=== PATIENT | male | born 1960 | race Caucasian/White ===

== ENCOUNTER 2018-01-04 12:33 | Inpatient (IN) | payer MEDICAID ==
[~2018-01-04] VITALS: Ht 177.8 cm; Wt 91.4 kg
[~2018-01-04 12:33] MED LIST: ACETA; AMIT50TA3 PO; AMLO-511 PO; AMOX-426 PO; ASPI-1182 PO; BENA10TA3 PO; GABA-529 PO; HYDROCO; INSNOV SQ; INSU100C4 SQ; METF500T7 PO; SIMV-259 PO; SMZ/TMP
[2018-01-04] MEDS ORDERED: SODIUM CHLORIDE 0.9% 1,000 ML IV ONE ×2 (12:45→14:30)
[2018-01-04] MEDS ORDERED: INSULIN REGULAR, HUMAN 100 UNITS/ML IVP ONE (12:45)
[2018-01-04 12:52] LABS: ABG A-A DIFF O2 50.6 mmHg (10-20.0); ABG BASE EXCESS -19.1 mmol/L (-2.0-3.0); ABG CARBOXYHEMOGLOBIN 1.2 % (0.0-1.5); ABG HCO3 12.3 mmol/L (22.0-26.0); ABG METHEMOGLOBIN 0.3 % (0.0-1.5); ABG OXYGEN SATURATION 93.9 % (95.0-98.0); ABG OXYHEMOGLOBIN 92.5 % (94.0-100.0); ABG PH 7.262 (7.35-7.450); ABG TOTAL HEMOGLOBIN 15.4 G/dL (12.0-18.0); PO2, ARTERIAL BG 77.7 mmHg (84.0-92.0); SOURCE, BLOOD GAS ARTERIAL; TEMPERATURE, FAHRENHEIT, BG 98.1 FAHREN (96.0-98.6)
[2018-01-04] MEDS ORDERED: AMLO-512 PO (12:52)
[2018-01-04] MEDS ORDERED: INSU100C14 SQ (12:52)
[2018-01-04] MEDS ORDERED: QUET200T PO (12:52)
[2018-01-04] MEDS ORDERED: ESCI10TA PO (12:52)
[2018-01-04] MEDS ORDERED: INSU100I26 SQ (12:52)
[2018-01-04 12:53] LABS: ABG PCO2 18 mmHg (35-45); SITE, BLOOD GAS RT RADIAL
[2018-01-04 13:02] LABS: BASOPHILS % (AUTO) 0.1 % (0.0-2.0); EOSINOPHILS % (AUTO) 0 % (1.0-6.0); HEMATOCRIT 45.8 % (41-53); HEMOGLOBIN 15.1 g/dL (13.5-17.5); LYMPHOCYTES # (AUTO) 0.3 K/uL (1.0-4.8); LYMPHOCYTES % (AUTO) 1.4 % (22.0-44.0); MEAN CORPUSCULAR HGB CONC 33.1 G/dL (31.0-37.0); MEAN CORPUSCULAR VOLUME 97 fL (80-100); MONOCYTES # (AUTO) 1.1 K/uL (0.1-1.0); MONOCYTES % (AUTO) 5.5 % (2.0-9.0); NEUTROPHILS # (AUTO) 19.3 K/uL (1.8-7.7); PLATELET COUNT (AUTO) 241 K/uL (150-450); RED BLOOD CELL COUNT(AUTO) 4.72 MIL/uL (4.50-5.90); RED CELL DISTRIBUTION WIDTH 14.5 % (11.5-14.5)
[2018-01-04 13:12] LABS: APPEARANCE,URINE CLEAR (CLEAR); BILIRUBIN,URINE NEGATIVE (NEGATIVE); GLUCOSE, URINE (UA) >=1000 mg/dL (NEGATIVE); KETONES,URINE >=80 mg/dL (NEGATIVE); LEUKOCYTE ESTERASE ,URINE NEGATIVE (NEGATIVE); NITRATE,URINE NEGATIVE (NEGATIVE); OCCULT BLOOD,URINE TRACE (NEGATIVE); PH,URINE 5.5 (5.0-8.0); PROTEIN,URINE NEGATIVE (NEGATIVE); UROBILINOGEN,URINE 0.2 mg/dL (<=1.0)
[2018-01-04 13:17] LABS: ALANINE AMINOTRANSFERASE 40 U/L (12-78); ALBUMIN 4.4 g/dL (3.4-5.0); ALKALINE PHOSPHATASE 123 U/L (46-116); ANION GAP 33 mmol/L (8-16); ASPARTATE AMINOTRANSFERASE 25 U/L (15-37); BILIRUBIN,TOTAL 1.2 mg/dL (0.1-1.0); CALCIUM, TOTAL 8.8 mg/dL (8.8-10.5); CARBON DIOXIDE 11 mmol/L (22-29); CHLORIDE 90 mmol/L (98-107); CREATININE 1.68 mg/dL (0.60-1.30); GLOMERULAR FILTR. RATE CALC 42 mL/min (>60); LIPASE 38 U/L (73-393); POTASSIUM 5.3 mmol/L (3.5-5.1); SODIUM SERUM 134 mmol/L (136-145); TOTAL PROTEIN, SERUM 7.4 g/dL (6.4-8.2); UREA NITROGEN, BLOOD 30 mg/dL (7-18)
[2018-01-04 13:20] LABS: GLUCOSE,RANDOM 681 mg/dL (70-110)
[2018-01-04] MEDS ORDERED: SODIUM CHLORIDE 0.45% 1,000 ML IV PRN (13:22)
[2018-01-04] MEDS ORDERED: POTASSIUM CHLORIDE 40 MEQ in SODIUM CHLORIDE 0.45% 1,000 ML IV PRN (13:22)
[2018-01-04] MEDS ORDERED: INSULIN REGULAR, HUMAN 100 UNITS in SODIUM CHLORIDE 0.9% 99 ML IV PRN ×2 (13:22)
[2018-01-04] MEDS ORDERED: DEXTROSE 5%-0.45% SODIUM CHL 1,000 ML IV PRN (13:22)
[2018-01-04] MEDS ORDERED: SODIUM CHLORIDE 0.9% 1,000 ML IV SCH (13:22)
[2018-01-04 13:25] LABS: BACTERIA,URINE None Seen /HPF (None Seen); RBC,URINE 0-2 /HPF (0-2); RENAL EPITHELIAL CELLS,URINE Rare /LPF (None Seen); WBC,URINE None Seen /HPF (0-5)
[2018-01-04] MEDS ORDERED: INSULIN REGULAR, HUMAN 100 UNITS/ML IVP PRN (13:30)
[2018-01-04] MEDS ORDERED: DEXTROSE 50%-WATER 25 GM/50 ML SYRINGE IVP PRN (13:30)
[2018-01-04 13:47] LABS: ACETONE,BLOOD 1:16 (NEGATIVE)
[2018-01-04 13:58] LABS: B-TYPE NATRIURETIC PEPTIDE 40 pg/mL (0-100)
[2018-01-04] MEDS ORDERED: 0.9% SODIUM CHLORIDE 10 ML SYRINGE IVP PRN (14:00)
[2018-01-04] MEDS ORDERED: ACETAMINOPHEN 325 MG TABLET PO PRN (14:00)
[2018-01-04] MEDS: ONDANSETRON HCL 4 MG/2 ML VIAL IVP PRN ×2 (14:01→22:36)
[2018-01-04 14:07] LABS: OSMOLALITY 330 mOS/kg (270-310)
[2018-01-04 14:09] LABS: GLUCOSE,POINT OF CARE 441 MG/DL (70-110)
[2018-01-04] MEDS ORDERED: METOCLOPRAMIDE HCL 5 MG/ML 2 ML VIAL IVP ONE (14:15)
[2018-01-04] MEDS ORDERED: POTASSIUM CHL 20 MEQ/0.9% NS 1,000 ML IV ONE (14:45)
[2018-01-04 15:08] LABS: GLUCOSE,POINT OF CARE 392 MG/DL (70-110)
[2018-01-04 15:37] LABS: GLUCOSE,POINT OF CARE 351 MG/DL (70-110)
[2018-01-04 16:03] LABS: GLUCOSE,POINT OF CARE 274 MG/DL (70-110)
[2018-01-04] MEDS: METOCLOPRAMIDE HCL 5 MG/ML 2 ML VIAL IVP PRN (16:48)
[2018-01-04 17:17] LABS: GLUCOSE,POINT OF CARE 184 MG/DL (70-110)
[2018-01-04 17:39] LABS: CALCIUM, TOTAL 8.3 mg/dL (8.8-10.5); CREATININE 1.43 mg/dL (0.60-1.30); POTASSIUM 4.1 mmol/L (3.5-5.1)
[2018-01-04] MEDS ORDERED: PROMETHAZINE HCL 50 MG/ML VIAL IM ONE (17:45)
[2018-01-04 18:08] LABS: GLUCOSE,POINT OF CARE 126 MG/DL (70-110)
[2018-01-04] MEDS: POTASSIUM CHL 20 MEQ/0.45% NS 1,000 ML IV PRN (18:46)
[2018-01-04 19:08] LABS: GLUCOSE,POINT OF CARE 99 MG/DL (70-110)
[2018-01-04 20:12] LABS: GLUCOSE,POINT OF CARE 79 MG/DL (70-110)
[2018-01-04 20:38] LABS: GLUCOSE,POINT OF CARE 94 MG/DL (70-110)
[2018-01-04 21:13] LABS: GLUCOSE,POINT OF CARE 152 MG/DL (70-110)
[2018-01-04 21:24] LABS: ANION GAP 17 mmol/L (8-16); CALCIUM, TOTAL 8.6 mg/dL (8.8-10.5); CARBON DIOXIDE 18 mmol/L (22-29); CHLORIDE 106 mmol/L (98-107); CREATININE 1.23 mg/dL (0.60-1.30); GLOMERULAR FILTR. RATE CALC > 60 mL/min (>60); GLUCOSE,RANDOM 164 mg/dL (70-110); POTASSIUM 5.2 mmol/L (3.5-5.1); SODIUM SERUM 141 mmol/L (136-145); UREA NITROGEN, BLOOD 26 mg/dL (7-18)
[2018-01-04 22:08] LABS: GLUCOSE,POINT OF CARE 167 MG/DL (70-110)
[2018-01-04 23:13] LABS: GLUCOSE,POINT OF CARE 131 MG/DL (70-110)
[2018-01-05] VITALS: BP 149/99
[2018-01-05 01:35] LABS: ANION GAP 12 mmol/L (8-16); CALCIUM, TOTAL 8.3 mg/dL (8.8-10.5); CARBON DIOXIDE 20 mmol/L (22-29); CHLORIDE 110 mmol/L (98-107); CREATININE 1.08 mg/dL (0.60-1.30); GLOMERULAR FILTR. RATE CALC > 60 mL/min (>60); GLUCOSE,RANDOM 69 mg/dL (70-110); SODIUM SERUM 142 mmol/L (136-145); UREA NITROGEN, BLOOD 22 mg/dL (7-18)
[2018-01-05] MEDS: POTASSIUM CHL 20 MEQ/0.45% NS 1,000 ML IV PRN (01:36)
[2018-01-05 04:00] VITALS: BP 168/88
[2018-01-05] MEDS: INSULIN ASPART 100 UNITS/ML SQ PRN (05:15)
[2018-01-05] MEDS: HydrALAZINE HCL 20 MG/ML VIAL IVP PRN (05:33)
[2018-01-05 06:04] LABS: BASOPHILS % (AUTO) 0.1 % (0.0-2.0); EOSINOPHILS % (AUTO) 0 % (1.0-6.0); HEMATOCRIT 41.2 % (41-53); LYMPHOCYTES # (AUTO) 0.9 K/uL (1.0-4.8); LYMPHOCYTES % (AUTO) 4.2 % (22.0-44.0); MEAN CORPUSCULAR HEMOGLOBIN 32.1 pg (26.0-34.0); MEAN CORPUSCULAR VOLUME 94 fL (80-100); MONOCYTES # (AUTO) 2.1 K/uL (0.1-1.0); MONOCYTES % (AUTO) 9.8 % (2.0-9.0); NEUTROPHILS # (AUTO) 18.1 K/uL (1.8-7.7); PLATELET COUNT (AUTO) 181 K/uL (150-450); RED BLOOD CELL COUNT(AUTO) 4.37 MIL/uL (4.50-5.90); RED CELL DISTRIBUTION WIDTH 14.1 % (11.5-14.5)
[2018-01-05 06:23] LABS: ALANINE AMINOTRANSFERASE 34 U/L (12-78); ALBUMIN 3.6 g/dL (3.4-5.0); ALKALINE PHOSPHATASE 100 U/L (46-116); ANION GAP 22 mmol/L (8-16); ASPARTATE AMINOTRANSFERASE 31 U/L (15-37); BILIRUBIN,TOTAL 1.2 mg/dL (0.1-1.0); CALCIUM, TOTAL 8.2 mg/dL (8.8-10.5); CARBON DIOXIDE 13 mmol/L (22-29); CHLORIDE 103 mmol/L (98-107); CREATININE 1.03 mg/dL (0.60-1.30); GLOMERULAR FILTR. RATE CALC > 60 mL/min (>60); GLUCOSE,RANDOM 280 mg/dL (70-110); POTASSIUM 4.6 mmol/L (3.5-5.1); SODIUM SERUM 138 mmol/L (136-145); TOTAL PROTEIN, SERUM 6.5 g/dL (6.4-8.2); UREA NITROGEN, BLOOD 20 mg/dL (7-18)
[2018-01-05 06:39] LABS: GLUCOSE,POINT OF CARE 268 MG/DL (70-110)
[2018-01-05 06:39] LABS: GLUCOSE,POINT OF CARE 150 MG/DL (70-110)
[2018-01-05 06:39] LABS: GLUCOSE,POINT OF CARE 71 MG/DL (70-110)
[2018-01-05 06:39] LABS: GLUCOSE,POINT OF CARE 173 MG/DL (70-110)
[2018-01-05] MEDS ORDERED: AmLODIPine BESYLATE 10 MG TABLET ONE (06:42)
[2018-01-05 06:43] LABS: NEUTROPHILS % (AUTO) 85.9 % (40.0-70.0)
[2018-01-05] MEDS: AmLODIPine BESYLATE 10 MG TABLET PO SCH (06:44)
[2018-01-05 06:52] LABS: PHOSPHORUS 2.1 mg/dL (2.5-4.9)
[2018-01-05] MEDS: METOCLOPRAMIDE HCL 5 MG/ML 2 ML VIAL IVP PRN ×3 (07:51→20:24)
[2018-01-05 08:00] VITALS: BP 183/80
[2018-01-05] MEDS: BENAZEPRIL HCL 10 MG TABLET PO SCH (08:49)
[2018-01-05] MEDS ORDERED: AmLODIPine BESYLATE 10 MG TABLET PO SCH (09:00)
[2018-01-05] MEDS ORDERED: BENAZEPRIL HCL 10 MG TABLET PO SCH (09:00)
[2018-01-05] MEDS ORDERED: SODIUM CHLORIDE 0.45% 1,000 ML IV PRN (09:57)
[2018-01-05] MEDS ORDERED: POTASSIUM CHL 20 MEQ/0.45% NS 1,000 ML IV PRN (09:57)
[2018-01-05] MEDS ORDERED: INSULIN REGULAR, HUMAN 100 UNITS/ML IVP PRN (10:00)
[2018-01-05] MEDS ORDERED: DEXTROSE 50%-WATER 25 GM/50 ML SYRINGE IVP PRN (10:00)
[2018-01-05] MEDS ORDERED: INSULIN REGULAR, HUMAN 100 UNITS/ML IVP ONE (10:00)
[2018-01-05] MEDS: INSULIN REGULAR, HUMAN 100 UNITS in SODIUM CHLORIDE 0.9% 99 ML IV PRN ×4 (10:22→23:10)
[2018-01-05 10:28] LABS: ANION GAP 23 mmol/L (8-16); CALCIUM, TOTAL 8.7 mg/dL (8.8-10.5); CARBON DIOXIDE 13 mmol/L (22-29); CHLORIDE 98 mmol/L (98-107); CREATININE 1.22 mg/dL (0.60-1.30); GLOMERULAR FILTR. RATE CALC > 60 mL/min (>60); GLUCOSE,RANDOM 391 mg/dL (70-110); POTASSIUM 4.4 mmol/L (3.5-5.1); SODIUM SERUM 134 mmol/L (136-145); UREA NITROGEN, BLOOD 20 mg/dL (7-18)
[2018-01-05 12:00] VITALS: BP 149/74
[2018-01-05] MEDS: DEXTROSE 5%-0.45% SODIUM CHL 1,000 ML IV PRN ×2 (12:09→23:11)
[2018-01-05] MEDS: PROMETHAZINE HCL 25 MG/ML VIAL IM PRN ×2 (12:32→17:53)
[2018-01-05 12:38] LABS: ANION GAP 21 mmol/L (8-16); CALCIUM, TOTAL 8.4 mg/dL (8.8-10.5); CARBON DIOXIDE 13 mmol/L (22-29); CHLORIDE 102 mmol/L (98-107); CREATININE 1.23 mg/dL (0.60-1.30); GLOMERULAR FILTR. RATE CALC > 60 mL/min (>60); GLUCOSE,RANDOM 208 mg/dL (70-110); POTASSIUM 3.8 mmol/L (3.5-5.1); SODIUM SERUM 136 mmol/L (136-145); UREA NITROGEN, BLOOD 21 mg/dL (7-18)
[2018-01-05] MEDS ORDERED: 0.9% SODIUM CHLORIDE 10 ML SYRINGE IVP PRN (13:00)
[2018-01-05] MEDS ORDERED: DiphenhydrAMINE HCL 50 MG/ML VIAL IVP PRN (13:00)
[2018-01-05] MEDS: POTASSIUM CHLORIDE 40 MEQ in SODIUM CHLORIDE 0.45% 1,000 ML IV PRN (13:39)
[2018-01-05] MEDS: DEXTROSE 50%-WATER 25 GM/50 ML SYRINGE IVP PRN ×2 (15:02→18:48)
[2018-01-05] MEDS: QUEtiapine FUMARATE 100 MG TABLET PO SCH (15:48)
[2018-01-05 16:00] VITALS: BP 135/65
[2018-01-05 16:47] LABS: ANION GAP 19 mmol/L (8-16); CALCIUM, TOTAL 8.6 mg/dL (8.8-10.5); CARBON DIOXIDE 14 mmol/L (22-29); CHLORIDE 104 mmol/L (98-107); CREATININE 1.11 mg/dL (0.60-1.30); GLOMERULAR FILTR. RATE CALC > 60 mL/min (>60); GLUCOSE,RANDOM 180 mg/dL (70-110); POTASSIUM 3.9 mmol/L (3.5-5.1); SODIUM SERUM 137 mmol/L (136-145); UREA NITROGEN, BLOOD 21 mg/dL (7-18)
[2018-01-05] MEDS: ACETAMINOPHEN 325 MG TABLET PO PRN (18:42)
[2018-01-05 20:00] VITALS: BP 123/60
[2018-01-05] MEDS: GABAPENTIN 100 MG CAPSULE PO SCH (20:44)
[2018-01-05] MEDS: QUEtiapine FUMARATE 200 MG TABLET PO SCH (20:44)
[2018-01-05] MEDS: SIMVASTATIN 10 MG TABLET PO SCH (20:44)
[2018-01-05 20:45] LABS: ANION GAP 18 mmol/L (8-16); CALCIUM, TOTAL 8.2 mg/dL (8.8-10.5); CARBON DIOXIDE 15 mmol/L (22-29); CHLORIDE 104 mmol/L (98-107); CREATININE 1.18 mg/dL (0.60-1.30); GLOMERULAR FILTR. RATE CALC > 60 mL/min (>60); GLUCOSE,RANDOM 271 mg/dL (70-110); POTASSIUM 4.4 mmol/L (3.5-5.1); SODIUM SERUM 137 mmol/L (136-145); UREA NITROGEN, BLOOD 20 mg/dL (7-18)
[2018-01-05 20:53] LABS: GLUCOSE,POINT OF CARE 223 MG/DL (70-110)
[2018-01-05 20:53] LABS: GLUCOSE,POINT OF CARE 339 MG/DL (70-110)
[2018-01-05 20:53] LABS: GLUCOSE,POINT OF CARE 150 MG/DL (70-110)
[2018-01-05 20:53] LABS: GLUCOSE,POINT OF CARE 91 MG/DL (70-110)
[2018-01-05 20:53] LABS: GLUCOSE,POINT OF CARE 362 MG/DL (70-110)
[2018-01-05 20:53] LABS: GLUCOSE,POINT OF CARE 54 MG/DL (70-110)
[2018-01-05 20:53] LABS: GLUCOSE,POINT OF CARE 351 MG/DL (70-110)
[2018-01-05 20:57] LABS: GLUCOSE,POINT OF CARE 132 MG/DL (70-110)
[2018-01-05 20:57] LABS: GLUCOSE,POINT OF CARE 172 MG/DL (70-110)
[2018-01-05 20:58] LABS: GLUCOSE,POINT OF CARE 255 MG/DL (70-110)
[2018-01-05 20:58] LABS: GLUCOSE,POINT OF CARE 68 MG/DL (70-110)
[2018-01-05 20:58] LABS: GLUCOSE,POINT OF CARE 109 MG/DL (70-110)
[2018-01-06] VITALS: BP 159/84
[2018-01-06] MEDS: PROMETHAZINE HCL 25 MG/ML VIAL IM PRN ×2 (00:25→08:25)
[2018-01-06 00:47] LABS: ANION GAP 10 mmol/L (8-16); CALCIUM, TOTAL 8.1 mg/dL (8.8-10.5); CARBON DIOXIDE 20 mmol/L (22-29); CHLORIDE 108 mmol/L (98-107); CREATININE 0.96 mg/dL (0.60-1.30); GLOMERULAR FILTR. RATE CALC > 60 mL/min (>60); GLUCOSE,RANDOM 85 mg/dL (70-110); POTASSIUM 3.9 mmol/L (3.5-5.1); SODIUM SERUM 138 mmol/L (136-145); UREA NITROGEN, BLOOD 18 mg/dL (7-18)
[2018-01-06] MEDS: POTASSIUM CHLORIDE 40 MEQ in SODIUM CHLORIDE 0.45% 1,000 ML IV PRN (01:45)
[2018-01-06 04:00] VITALS: BP 147/82
[2018-01-06] MEDS: METOCLOPRAMIDE HCL 5 MG/ML 2 ML VIAL IVP PRN ×2 (04:03→16:38)
[2018-01-06 05:22] LABS: BASOPHILS % (AUTO) 0.1 % (0.0-2.0); EOSINOPHILS % (AUTO) 0 % (1.0-6.0); HEMATOCRIT 42.6 % (41-53); HEMOGLOBIN 14.7 g/dL (13.5-17.5); LYMPHOCYTES # (AUTO) 1.6 K/uL (1.0-4.8); LYMPHOCYTES % (AUTO) 9.3 % (22.0-44.0); MEAN CORPUSCULAR HEMOGLOBIN 31.9 pg (26.0-34.0); MEAN CORPUSCULAR HGB CONC 34.4 G/dL (31.0-37.0); MEAN CORPUSCULAR VOLUME 93 fL (80-100); MONOCYTES # (AUTO) 1.5 K/uL (0.1-1.0); NEUTROPHILS # (AUTO) 13.6 K/uL (1.8-7.7); NEUTROPHILS % (AUTO) 81.6 % (40.0-70.0); PLATELET COUNT (AUTO) 194 K/uL (150-450); RED CELL DISTRIBUTION WIDTH 14.3 % (11.5-14.5)
[2018-01-06 05:31] LABS: HEMOGLOBIN A1C 7.5 % (4.5-6.2)
[2018-01-06 05:39] LABS: ANION GAP 12 mmol/L (8-16); CALCIUM, TOTAL 7.9 mg/dL (8.8-10.5); CARBON DIOXIDE 18 mmol/L (22-29); CHLORIDE 107 mmol/L (98-107); CHOL/HDL RATIO 2.1 (4.2-7.3); CHOLESTEROL 148 mg/dL (131-200); CREATININE 0.95 mg/dL (0.60-1.30); GLOMERULAR FILTR. RATE CALC > 60 mL/min (>60); HDL CHOLESTEROL 69 mg/dL (40-60); LDL CHOL (CALC.) 61 mg/dL (0-130); POTASSIUM 4.3 mmol/L (3.5-5.1); SODIUM SERUM 137 mmol/L (136-145); TRIGLYCERIDES 89 mg/dL (15-150); UREA NITROGEN, BLOOD 14 mg/dL (7-18)
[2018-01-06] MEDS: HydrALAZINE HCL 20 MG/ML VIAL IVP PRN ×2 (06:12→08:23)
[2018-01-06 06:23] LABS: GLUCOSE,RANDOM 130 mg/dL (70-110)
[2018-01-06 06:52] LABS: PHOSPHORUS 1.2 mg/dL (2.5-4.9)
[2018-01-06] MEDS ORDERED: POTASSIUM PHOS,M-BASIC-D-BASIC 20 MMOL in SODIUM CHLORIDE 0.45% 500 ML IV ONE (07:30)
[2018-01-06 07:48] LABS: GLUCOSE,POINT OF CARE 127 MG/DL (70-110)
[2018-01-06 07:48] LABS: GLUCOSE,POINT OF CARE 94 MG/DL (70-110)
[2018-01-06 07:48] LABS: GLUCOSE,POINT OF CARE 194 MG/DL (70-110)
[2018-01-06 07:48] LABS: GLUCOSE,POINT OF CARE 153 MG/DL (70-110)
[2018-01-06 08:00] VITALS: BP 172/91
[2018-01-06] MEDS: AmLODIPine BESYLATE 10 MG TABLET PO SCH (08:23)
[2018-01-06] MEDS: BENAZEPRIL HCL 10 MG TABLET PO SCH (08:24)
[2018-01-06] MEDS: ACETAMINOPHEN 325 MG TABLET PO PRN ×2 (08:24→20:01)
[2018-01-06] MEDS: QUEtiapine FUMARATE 100 MG TABLET PO SCH (08:24)
[2018-01-06] MEDS: ESCITALOPRAM OXALATE 10 MG TABLET PO SCH (08:24)
[2018-01-06] MEDS: AMITRIPTYLINE HCL 50 MG TABLET PO SCH (08:24)
[2018-01-06] MEDS: GABAPENTIN 100 MG CAPSULE PO SCH ×2 (08:24→20:01)
[2018-01-06] MEDS: ASPIRIN 81 MG CHEWABLE TABLET PO SCH (08:26)
[2018-01-06 08:29] LABS: ANION GAP 13 mmol/L (8-16); CALCIUM, TOTAL 7.6 mg/dL (8.8-10.5); CARBON DIOXIDE 16 mmol/L (22-29); CHLORIDE 105 mmol/L (98-107); CREATININE 0.69 mg/dL (0.60-1.30); GLOMERULAR FILTR. RATE CALC > 60 mL/min (>60); GLUCOSE,RANDOM 151 mg/dL (70-110); POTASSIUM 4.3 mmol/L (3.5-5.1); SODIUM SERUM 134 mmol/L (136-145); UREA NITROGEN, BLOOD 12 mg/dL (7-18)
[2018-01-06 10:47] LABS: GLUCOSE,POINT OF CARE 127 MG/DL (70-110)
[2018-01-06] MEDS: INSULIN ASPART 100 UNITS/ML SQ PRN ×6 (10:58→18:47)
[2018-01-06 12:00] VITALS: BP 117/77
[2018-01-06 12:43] LABS: GLUCOSE,POINT OF CARE 259 MG/DL (70-110)
[2018-01-06 12:45] LABS: ANION GAP 18 mmol/L (8-16); CALCIUM, TOTAL 7.7 mg/dL (8.8-10.5); CARBON DIOXIDE 13 mmol/L (22-29); CHLORIDE 104 mmol/L (98-107); CREATININE 1.06 mg/dL (0.60-1.30); GLOMERULAR FILTR. RATE CALC > 60 mL/min (>60); GLUCOSE,RANDOM 290 mg/dL (70-110); POTASSIUM 4.1 mmol/L (3.5-5.1); SODIUM SERUM 135 mmol/L (136-145); UREA NITROGEN, BLOOD 18 mg/dL (7-18)
[2018-01-06 16:00] VITALS: BP 103/62
[2018-01-06] MEDS ORDERED: PROMETHAZINE HCL 25 MG/ML VIAL IM PRN (16:00)
[2018-01-06 17:33] LABS: ANION GAP 13 mmol/L (8-16); CALCIUM, TOTAL 8.1 mg/dL (8.8-10.5); CARBON DIOXIDE 18 mmol/L (22-29); CHLORIDE 105 mmol/L (98-107); GLOMERULAR FILTR. RATE CALC > 60 mL/min (>60); GLUCOSE,RANDOM 124 mg/dL (70-110); POTASSIUM 4.2 mmol/L (3.5-5.1); SODIUM SERUM 136 mmol/L (136-145); UREA NITROGEN, BLOOD 18 mg/dL (7-18)
[2018-01-06 17:38] LABS: GLUCOSE,POINT OF CARE 173 MG/DL (70-110)
[2018-01-06 17:38] LABS: GLUCOSE,POINT OF CARE 62 MG/DL (70-110)
[2018-01-06 17:38] LABS: GLUCOSE,POINT OF CARE 134 MG/DL (70-110)
[2018-01-06 17:38] LABS: GLUCOSE,POINT OF CARE 397 MG/DL (70-110)
[2018-01-06 17:38] LABS: GLUCOSE,POINT OF CARE 72 MG/DL (70-110)
[2018-01-06 17:38] LABS: GLUCOSE,POINT OF CARE 356 MG/DL (70-110)
[2018-01-06 17:38] LABS: GLUCOSE,POINT OF CARE 137 MG/DL (70-110)
[2018-01-06 17:38] LABS: GLUCOSE,POINT OF CARE 168 MG/DL (70-110)
[2018-01-06 17:38] LABS: GLUCOSE,POINT OF CARE 129 MG/DL (70-110)
[2018-01-06 17:38] LABS: GLUCOSE,POINT OF CARE 128 MG/DL (70-110)
[2018-01-06 17:38] LABS: GLUCOSE,POINT OF CARE 121 MG/DL (70-110)
[2018-01-06 17:38] LABS: GLUCOSE,POINT OF CARE 282 MG/DL (70-110)
[2018-01-06 19:58] LABS: GLUCOSE,POINT OF CARE 153 MG/DL (70-110)
[2018-01-06 19:58] LABS: GLUCOSE,POINT OF CARE 167 MG/DL (70-110)
[2018-01-06 19:58] LABS: GLUCOSE,POINT OF CARE 220 MG/DL (70-110)
[2018-01-06 19:58] LABS: GLUCOSE,POINT OF CARE 148 MG/DL (70-110)
[2018-01-06 20:00] VITALS: BP 159/90
[2018-01-06] MEDS: QUEtiapine FUMARATE 200 MG TABLET PO SCH (20:01)
[2018-01-06] MEDS: SIMVASTATIN 10 MG TABLET PO SCH (20:01)
[2018-01-06] MEDS: INSULIN GLARGINE,HUM.REC.ANLOG 100 UNITS/ML SQ SCH (20:02)
[2018-01-06 22:38] LABS: GLUCOSE,POINT OF CARE 119 MG/DL (70-110)
[2018-01-06 22:38] LABS: GLUCOSE,POINT OF CARE 110 MG/DL (70-110)
[2018-01-06 22:39] LABS: ANION GAP 12 mmol/L (8-16); CALCIUM, TOTAL 7.8 mg/dL (8.8-10.5); CARBON DIOXIDE 19 mmol/L (22-29); CHLORIDE 106 mmol/L (98-107); CREATININE 0.78 mg/dL (0.60-1.30); GLOMERULAR FILTR. RATE CALC > 60 mL/min (>60); GLUCOSE,RANDOM 115 mg/dL (70-110); POTASSIUM 3.8 mmol/L (3.5-5.1); SODIUM SERUM 137 mmol/L (136-145); UREA NITROGEN, BLOOD 17 mg/dL (7-18)
[2018-01-07] VITALS: BP 146/78
[2018-01-07 00:23] LABS: GLUCOSE,POINT OF CARE 90 MG/DL (70-110)
[2018-01-07] MEDS: INSULIN ASPART 100 UNITS/ML SQ PRN ×7 (02:15→21:27)
[2018-01-07 04:00] VITALS: BP 143/76
[2018-01-07 04:14] LABS: GLUCOSE,POINT OF CARE 215 MG/DL (70-110)
[2018-01-07 06:58] LABS: GLUCOSE,POINT OF CARE 154 MG/DL (70-110)
[2018-01-07 06:58] LABS: GLUCOSE,POINT OF CARE 175 MG/DL (70-110)
[2018-01-07 06:58] LABS: GLUCOSE,POINT OF CARE 153 MG/DL (70-110)
[2018-01-07 07:24] LABS: ANION GAP 9 mmol/L (8-16); CALCIUM, TOTAL 7.9 mg/dL (8.8-10.5); CARBON DIOXIDE 24 mmol/L (22-29); CHLORIDE 106 mmol/L (98-107); CREATININE 0.74 mg/dL (0.60-1.30); GLOMERULAR FILTR. RATE CALC > 60 mL/min (>60); GLUCOSE,RANDOM 121 mg/dL (70-110); POTASSIUM 3.4 mmol/L (3.5-5.1); SODIUM SERUM 139 mmol/L (136-145); UREA NITROGEN, BLOOD 14 mg/dL (7-18)
[2018-01-07 08:00] VITALS: BP 135/70
[2018-01-07] MEDS: GABAPENTIN 100 MG CAPSULE PO SCH ×2 (08:30→21:23)
[2018-01-07] MEDS: ESCITALOPRAM OXALATE 10 MG TABLET PO SCH (08:30)
[2018-01-07] MEDS: AmLODIPine BESYLATE 10 MG TABLET PO SCH (08:30)
[2018-01-07] MEDS: BENAZEPRIL HCL 10 MG TABLET PO SCH (08:30)
[2018-01-07] MEDS: QUEtiapine FUMARATE 100 MG TABLET PO SCH (08:31)
[2018-01-07] MEDS: ASPIRIN 81 MG CHEWABLE TABLET PO SCH (08:31)
[2018-01-07] MEDS: AMITRIPTYLINE HCL 50 MG TABLET PO SCH (08:31)
[2018-01-07 09:46] LABS: PHOSPHORUS 2.3 mg/dL (2.5-4.9)
[2018-01-07 10:23] LABS: GLUCOSE,POINT OF CARE 98 MG/DL (70-110)
[2018-01-07 10:23] LABS: GLUCOSE,POINT OF CARE 183 MG/DL (70-110)
[2018-01-07 12:00] VITALS: BP 125/65
[2018-01-07 12:08] LABS: GLUCOSE,POINT OF CARE 172 MG/DL (70-110)
[2018-01-07 16:15] VITALS: BP 113/65
[2018-01-07 16:31] LABS: AMPHET/METH SCREEN,URINE NEGATIVE (NEGATIVE); BARBITURATE SCREEN, URINE NEGATIVE (NEGATIVE); BENZODIAZEPINES SCREEN,URINE NEGATIVE (NEGATIVE); CANNABINOID SCREEN,URINE POSITIVE (NEGATIVE); COCAINE SCREEN,URINE NEGATIVE (NEGATIVE); METHADONE SCREEN, URINE NEGATIVE (NEGATIVE); OPIATE SCREEN,URINE NEGATIVE (NEGATIVE); PHENCYCLIDINE SCREEN,URINE NEGATIVE (NEGATIVE)
[2018-01-07] MEDS: METOCLOPRAMIDE HCL 5 MG/ML 2 ML VIAL IVP PRN (17:55)
[2018-01-07 19:30] VITALS: BP 150/64
[2018-01-07 21:03] LABS: GLUCOSE,POINT OF CARE 125 MG/DL (70-110)
[2018-01-07] MEDS: QUEtiapine FUMARATE 200 MG TABLET PO SCH (21:24)
[2018-01-07] MEDS: INSULIN GLARGINE,HUM.REC.ANLOG 100 UNITS/ML SQ SCH (21:26)
[2018-01-07] MEDS: SIMVASTATIN 10 MG TABLET PO SCH (23:15)
[2018-01-08] VITALS (7 sets, daily range): BP systolic 115–142; BP diastolic 62–79
[2018-01-08 08:08] LABS: GLUCOMETER DEV NAME(LOC) 5N 1N; GLUCOSE,POINT OF CARE 213 MG/DL (70-110)
[2018-01-08 08:08] LABS: GLUCOMETER DEV NAME(LOC) 5N 1N; GLUCOSE,POINT OF CARE 156 MG/DL (70-110)
[2018-01-08 08:09] LABS: GLUCOMETER DEV NAME(LOC) 5N 1N; GLUCOSE,POINT OF CARE 136 MG/DL (70-110)
[2018-01-08] MEDS: AmLODIPine BESYLATE 10 MG TABLET PO SCH (08:49)
[2018-01-08] MEDS: ESCITALOPRAM OXALATE 10 MG TABLET PO SCH (08:49)
[2018-01-08] MEDS: GABAPENTIN 100 MG CAPSULE PO SCH ×2 (08:49→20:46)
[2018-01-08] MEDS: BENAZEPRIL HCL 10 MG TABLET PO SCH (08:49)
[2018-01-08] MEDS: QUEtiapine FUMARATE 100 MG TABLET PO SCH (08:49)
[2018-01-08] MEDS: AMITRIPTYLINE HCL 50 MG TABLET PO SCH (08:49)
[2018-01-08] MEDS: ASPIRIN 81 MG CHEWABLE TABLET PO SCH (08:49)
[2018-01-08] MEDS: INSULIN ASPART 100 UNITS/ML SQ PRN ×3 (12:14→21:01)
[2018-01-08 13:03] LABS: GLUCOMETER DEV NAME(LOC) 5S 1M; GLUCOSE,POINT OF CARE 300 MG/DL (70-110)
[2018-01-08 14:46] LABS: ANION GAP 9 mmol/L (8-16); CALCIUM, TOTAL 8.4 mg/dL (8.8-10.5); CARBON DIOXIDE 25 mmol/L (22-29); CHLORIDE 100 mmol/L (98-107); CREATININE 0.86 mg/dL (0.60-1.30); GLOMERULAR FILTR. RATE CALC > 60 mL/min (>60); GLUCOSE,RANDOM 256 mg/dL (70-110); POTASSIUM 3.8 mmol/L (3.5-5.1); SODIUM SERUM 134 mmol/L (136-145); UREA NITROGEN, BLOOD 15 mg/dL (7-18)
[2018-01-08] MEDS: SIMVASTATIN 10 MG TABLET PO SCH (20:46)
[2018-01-08] MEDS: QUEtiapine FUMARATE 200 MG TABLET PO SCH (20:46)
[2018-01-08] MEDS: INSULIN GLARGINE,HUM.REC.ANLOG 100 UNITS/ML SQ SCH (21:01)
[2018-01-09 04:38] VITALS: BP 128/67
[2018-01-09 06:08] LABS: GLUCOMETER DEV NAME(LOC) 5S 1M; GLUCOSE,POINT OF CARE 243 MG/DL (70-110)
[2018-01-09] MEDS: INSULIN ASPART 100 UNITS/ML SQ PRN ×2 (06:20→11:46)
[2018-01-09 07:40] VITALS: BP 121/79
[2018-01-09 07:58] LABS: GLUCOMETER DEV NAME(LOC) 5N 1N; GLUCOSE,POINT OF CARE 187 MG/DL (70-110)
[2018-01-09 07:58] LABS: GLUCOMETER DEV NAME(LOC) 5N 1N; GLUCOSE,POINT OF CARE 297 MG/DL (70-110)
[2018-01-09] MEDS: AMITRIPTYLINE HCL 50 MG TABLET PO SCH (09:03)
[2018-01-09] MEDS: ASPIRIN 81 MG CHEWABLE TABLET PO SCH (09:03)
[2018-01-09] MEDS: QUEtiapine FUMARATE 100 MG TABLET PO SCH (09:03)
[2018-01-09] MEDS: BENAZEPRIL HCL 10 MG TABLET PO SCH (09:03)
[2018-01-09] MEDS: ESCITALOPRAM OXALATE 10 MG TABLET PO SCH (09:03)
[2018-01-09] MEDS: AmLODIPine BESYLATE 10 MG TABLET PO SCH (09:04)
[2018-01-09] MEDS: GABAPENTIN 100 MG CAPSULE PO SCH (09:04)
[2018-01-09 11:04] VITALS: BP 132/73
[2018-01-10 04:04] LABS: GLUCOMETER DEV NAME(LOC) 5N 1N; GLUCOSE,POINT OF CARE 184 MG/DL (70-110)
== END 2018-01-09 14:00 | disposition home or self-care (01) | DRG 420 ==
LOC: EMS 12:34 → ICU 22:38 → 5S 01-07 15:55
PROVIDERS: ADMIT Family Medicine; ATTEND Family Medicine
DX: E11.10 Type 2 diabetes mellitus with ketoacidosis without coma (principal); N17.0 Acute kidney failure with tubular necrosis; R65.11 Systemic inflammatory response syndrome (SIRS) of non-infectious origin with acute organ dysfunction; E78.00 Pure hypercholesterolemia, unspecified; I10 Essential (primary) hypertension; E11.40 Type 2 diabetes mellitus with diabetic neuropathy, unspecified; E78.5 Hyperlipidemia, unspecified; K25.9 Gastric ulcer, unspecified as acute or chronic, without hemorrhage or perforation; E87.2 Acidosis; F17.210 Nicotine dependence, cigarettes, uncomplicated; Z91.19 Patient's noncompliance with other medical treatment and regimen; Z79.82 Long term (current) use of aspirin; Z79.4 Long term (current) use of insulin
CPT/HCPCS: 71046; 74018; 74022; 80307; 82805; 82962; 83036; 83735; 83930; 84100; 87081; 93005; 96361; 96365; 96366; 96372; 96375; 96376; 99291; J0360; J1200; J1815; J2405; J2550; J2765; J3480; J3490; J7030; J7050

== ENCOUNTER 2020-03-02 16:10 | Emergency (ER) | payer MEDICAID ==
[~2020-03-02] VITALS: Ht 177.8 cm; Wt 93.2 kg
[~2020-03-02 16:10] MED LIST changes: -ACETA; -AMLO-511 PO; +AMLO10TA7 PO; -AMOX-426 PO; +ASPI-1111 PO; -ASPI-1182 PO; -BENA10TA3 PO; +BENA10TA77 PO; +ESCI10TA PO; +GABA-1216 PO; -GABA-529 PO; -HYDROCO; +INSLAN SQ; -INSNOV SQ; +INSU100C14 SQ; -INSU100C4 SQ; +INSU100I26 SQ; +METF-911 PO; -METF500T7 PO; +QUET200T PO; -SMZ/TMP
[2020-03-02] MEDS ORDERED: 0.9% SODIUM CHLORIDE 10 ML SYRINGE IVP PRN ×2 (16:45→22:00)
[2020-03-02] MEDS ORDERED: ACETAMINOPHEN 500 MG TABLET PO ONE (16:45)
[2020-03-02 17:21] LABS: BASOPHILS % (AUTO) 0.3 % (0.0-2.0); EOSINOPHILS % (AUTO) 0 % (1.0-6.0); HEMATOCRIT 44.6 % (41-53); HEMOGLOBIN 14.8 g/dL (13.5-17.5); LYMPHOCYTES # (AUTO) 0.6 K/uL (1.0-4.8); LYMPHOCYTES % (AUTO) 4.8 % (22.0-44.0); MEAN CORPUSCULAR HEMOGLOBIN 31.5 pg (26.0-34.0); MEAN CORPUSCULAR HGB CONC 33.2 G/dL (31.0-37.0); MEAN CORPUSCULAR VOLUME 95 fL (80-100); MONOCYTES # (AUTO) 0.9 K/uL (0.1-1.0); MONOCYTES % (AUTO) 7.2 % (2.0-9.0); NEUTROPHILS # (AUTO) 10.9 K/uL (1.8-7.7); PLATELET COUNT (AUTO) 202 K/uL (150-450); RED CELL DISTRIBUTION WIDTH 14.8 % (11.5-14.5)
[2020-03-02 17:22] LABS: NEUTROPHILS % (AUTO) 87.7 % (40.0-70.0)
[2020-03-02 17:30] LABS: ANION GAP 22 mmol/L (8-16); CALCIUM, TOTAL 9.3 mg/dL (8.8-10.5); CARBON DIOXIDE 14 mmol/L (22-29); CHLORIDE 98 mmol/L (98-107); CREATININE 1.36 mg/dL (0.60-1.30); GLOMERULAR FILTR. RATE CALC 54 mL/min (>60); GLUCOSE,RANDOM 270 mg/dL (70-110); POTASSIUM 4.7 mmol/L (3.5-5.1); SODIUM SERUM 134 mmol/L (136-145); UREA NITROGEN, BLOOD 26 mg/dL (7-18)
[2020-03-02 17:31] LABS: ACETONE,BLOOD NEGATIVE (NEGATIVE)
[2020-03-02 17:37] LABS: INR 0.9 (0.9-1.1); PROTHROMBIN TIME 9.4 SEC (9.4-11.6)
[2020-03-02 17:38] LABS: LACTIC ACID 1.6 mmol/L (0.4-2.0)
[2020-03-02 17:42] LABS: PLATELET MORPHOLOGY COMMENT LARGE PLTS PRESENT
[2020-03-02 17:43] LABS: B-TYPE NATRIURETIC PEPTIDE 68 pg/mL (0-100)
[2020-03-02 17:44] LABS: ALANINE AMINOTRANSFERASE 36 U/L (12-78); ALBUMIN 3.8 g/dL (3.4-5.0); ALKALINE PHOSPHATASE 145 U/L (46-116); ASPARTATE AMINOTRANSFERASE 15 U/L (15-37); BILIRUBIN,TOTAL 1.1 mg/dL (0.1-1.0); CREATINE KINASE, TOTAL ONLY 128 U/L (39-308); LACTATE DEHYDROGENASE 248 U/L (85-227); TOTAL PROTEIN, SERUM 7.4 g/dL (6.4-8.2)
[2020-03-02 17:50] LABS: INFLUENZA TYPE A NEGATIVE FOR TYPE A (NEGATIVE); INFLUENZA TYPE B NEGATIVE FOR TYPE B (NEGATIVE)
[2020-03-02 17:52] LABS: C-REACTIVE PROTEIN QUANT 5.02 mg/dL (0.00-0.30)
[2020-03-02 17:56] LABS: APPEARANCE,URINE CLEAR (CLEAR); GLUCOSE, URINE (UA) 500 mg/dL (NEGATIVE); KETONES,URINE >=80 mg/dL (NEGATIVE); LEUKOCYTE ESTERASE ,URINE TRACE (NEGATIVE); NITRATE,URINE NEGATIVE (NEGATIVE); OCCULT BLOOD,URINE MODERATE (NEGATIVE); PROTEIN,URINE POS 1+ (NEGATIVE)
[2020-03-02 17:58] LABS: BILIRUBIN,URINE PRELIM. POSITIVE (NEGATIVE)
[2020-03-02 18:15] LABS: BACTERIA,URINE Few /HPF (None Seen); SQUAMOUS EPITHELIAL CELL,UR Few /LPF (None Seen)
[2020-03-02] MEDS ORDERED: SODIUM CHLORIDE 0.9% 2,800 ML IV ONE (18:18)
[2020-03-02] MEDS ORDERED: METOCLOPRAMIDE HCL 5 MG/ML 2 ML VIAL IVP ONE (18:30)
[2020-03-02] MEDS ORDERED: ACETAMINOPHEN 1000 MG/ISO-OSM 100 ML IV ONE (18:30)
[2020-03-02 18:45] LABS: ABG A-A DIFF O2 26.8 mmHg (10-20.0); ABG CARBOXYHEMOGLOBIN 0.7 % (0.0-1.5); ABG HCO3 11.6 mmol/L (22.0-26.0); ABG METHEMOGLOBIN 0.5 % (0.0-1.5); ABG OXYGEN CONTENT 20.7 mL/dL (15.0-23.0); ABG OXYGEN SATURATION 97.8 % (95.0-98.0); ABG OXYHEMOGLOBIN 96.6 % (94.0-100.0); ABG PH 7.274 (7.35-7.450); ABG TOTAL HEMOGLOBIN 15.2 G/dL (12.0-18.0); PO2, ARTERIAL BG 107.4 mmHg (84.0-92.0); SOURCE, BLOOD GAS ARTERIAL; TEMPERATURE, FAHRENHEIT, BG 98.6 FAHREN (96.0-98.6)
[2020-03-02 18:46] LABS: ABG PCO2 13 mmHg (35-45); SITE, BLOOD GAS LFT RADIAL
[2020-03-02] MEDS ORDERED: INSULIN REGULAR, HUMAN 100 UNITS in SODIUM CHLORIDE 0.9% 99 ML IV PRN ×2 (19:13)
[2020-03-02] MEDS ORDERED: POTASSIUM CHLORIDE 40 MEQ in SODIUM CHLORIDE 0.45% 1,000 ML IV PRN (19:13)
[2020-03-02] MEDS ORDERED: POTASSIUM CHL 20 MEQ/0.45% NS 1,000 ML IV PRN (19:13)
[2020-03-02] MEDS ORDERED: DEXTROSE 5%-0.45% SODIUM CHL 1,000 ML IV PRN (19:13)
[2020-03-02] MEDS ORDERED: SODIUM CHLORIDE 0.9% 1,000 ML IV SCH (19:13)
[2020-03-02] MEDS ORDERED: INSULIN REGULAR, HUMAN 100 UNITS/ML IVP ONE (19:15)
[2020-03-02] MEDS ORDERED: INSULIN REGULAR, HUMAN 100 UNITS/ML IVP PRN (19:15)
[2020-03-02] MEDS ORDERED: DEXTROSE 50%-WATER 25 GM/50 ML SYRINGE IVP PRN (19:15)
[2020-03-02 19:22] LABS: GLUCOSE,POINT OF CARE 490 MG/DL (70-110)
[2020-03-02 20:36] LABS: GLUCOSE,POINT OF CARE 442 MG/DL (70-110)
[2020-03-02] MEDS ORDERED: PROMETHAZINE HCL 25 MG TABLET PO ONE (20:45)
[2020-03-02 21:49] LABS: CALCIUM, TOTAL 8.2 mg/dL (8.8-10.5); CREATININE 1.53 mg/dL (0.60-1.30); POTASSIUM 3.7 mmol/L (3.5-5.1)
[2020-03-02] MEDS ORDERED: ONDANSETRON HCL 4 MG/2 ML VIAL IVP PRN (22:00)
[2020-03-02 22:43] LABS: GLUCOSE,POINT OF CARE 331 MG/DL (70-110)
[2020-03-02 23:59] LABS: GLUCOSE,POINT OF CARE 204 MG/DL (70-110)
[2020-03-02 23:59] LABS: GLUCOSE,POINT OF CARE 283 MG/DL (70-110)
[2020-03-03] MEDS: SODIUM CHLORIDE 0.45% 1,000 ML IV PRN ×2 (00:08→00:13)
[2020-03-03] MEDS: HEPARIN SODIUM,PORCINE 5,000 UNITS/ML VIAL SQ SCH ×2 (00:17→09:13)
[2020-03-03 00:49] LABS: GLUCOSE,POINT OF CARE 155 MG/DL (70-110)
[2020-03-03 01:44] LABS: GLUCOSE,POINT OF CARE 126 MG/DL (70-110)
[2020-03-03 02:42] LABS: GLUCOSE,POINT OF CARE 86 MG/DL (70-110)
[2020-03-03 03:29] LABS: CALCIUM, TOTAL 8.6 mg/dL (8.8-10.5); CREATININE 1.27 mg/dL (0.60-1.30); POTASSIUM 3.8 mmol/L (3.5-5.1)
[2020-03-03 03:44] LABS: GLUCOSE,POINT OF CARE 78 MG/DL (70-110)
[2020-03-03 04:11] LABS: GLUCOSE,POINT OF CARE 76 MG/DL (70-110)
[2020-03-03 05:22] LABS: GLUCOSE,POINT OF CARE 186 MG/DL (70-110)
[2020-03-03 06:58] LABS: GLUCOSE,POINT OF CARE 381 MG/DL (70-110)
[2020-03-03] MEDS ORDERED: DEXTROSE 50%-WATER 25 GM/50 ML SYRINGE IVP PRN (07:30)
[2020-03-03] MEDS ORDERED: INSULIN GLARGINE,HUM.REC.ANLOG 100 UNITS/ML SQ ONE ×2 (07:30→21:00)
[2020-03-03] MEDS ORDERED: INSULIN LISPRO 100 UNITS/ML SQ PRN (07:30)
[2020-03-03 08:47] LABS: EOSINOPHILS % (AUTO) 0 % (1.0-6.0); HEMOGLOBIN 13.7 g/dL (13.5-17.5); LYMPHOCYTES # (AUTO) 0.6 K/uL (1.0-4.8); LYMPHOCYTES % (AUTO) 3.4 % (22.0-44.0); MEAN CORPUSCULAR HEMOGLOBIN 31.3 pg (26.0-34.0); MEAN CORPUSCULAR HGB CONC 32.6 G/dL (31.0-37.0); MEAN CORPUSCULAR VOLUME 96 fL (80-100); MONOCYTES % (AUTO) 5.4 % (2.0-9.0); NEUTROPHILS # (AUTO) 17.6 K/uL (1.8-7.7); PLATELET COUNT (AUTO) 206 K/uL (150-450); RED BLOOD CELL COUNT(AUTO) 4.36 MIL/uL (4.50-5.90); RED CELL DISTRIBUTION WIDTH 15.3 % (11.5-14.5)
[2020-03-03 08:48] LABS: NEUTROPHILS % (AUTO) 91.2 % (40.0-70.0)
[2020-03-03] MEDS ORDERED: PANTOPRAZOLE SODIUM 40 MG/VIAL IVP SCH (09:00)
[2020-03-03 09:06] LABS: ALBUMIN 3.5 g/dL (3.4-5.0); CALCIUM, TOTAL 8.4 mg/dL (8.8-10.5); CREATININE 1.45 mg/dL (0.60-1.30); MAGNESIUM 1.9 mg/dL (1.80-2.40); POTASSIUM 4.3 mmol/L (3.5-5.1); TOTAL PROTEIN, SERUM 6.7 g/dL (6.4-8.2)
[2020-03-03 09:28] VITALS: BP 161/82
[2020-03-03 09:37] LABS: GLUCOSE,POINT OF CARE 443 MG/DL (70-110)
[2020-03-03] MEDS ORDERED: HydrALAZINE HCL 20 MG/ML VIAL IVP PRN (11:45)
[2020-03-03] MEDS ORDERED: QUET200T5 PO (12:28)
[2020-03-03] MEDS ORDERED: GABA-1201 PO (12:28)
[2020-03-03] MEDS ORDERED: ESCI20TA PO (12:28)
[2020-03-03] MEDS ORDERED: QUET100T33 PO (12:28)
== END 2020-03-03 10:35 | disposition left against medical advice (07) ==
LOC: EMS 16:12
DX: E11.10 Type 2 diabetes mellitus with ketoacidosis without coma (principal); E78.00 Pure hypercholesterolemia, unspecified; I10 Essential (primary) hypertension; F17.210 Nicotine dependence, cigarettes, uncomplicated; Z20.828 Contact with and (suspected) exposure to other viral communicable diseases; F12.90 Cannabis use, unspecified, uncomplicated; Z79.4 Long term (current) use of insulin; Z79.84 Long term (current) use of oral hypoglycemic drugs; Z79.82 Long term (current) use of aspirin
CPT/HCPCS: 36415; 36600; 71045; 80048; 80053; 81001; 82009; 82550; 82805; 82962; 83605; 83615; 83735; 83880; 84100; 84145; 84484; 85025; 85610; 85730; 86140; 87040; 87635; 87804; 93005; 96365; 96366; 96367; 96368; 96372; 96375 ×2; 96376; 99291; C9113; J0131; J1644; J1815 ×2; J2405; J2765; J3480; J7030; J7050; X7700 ×2